=== PATIENT | female | born 1990 | race Caucasian/White ===

== ENCOUNTER 2018-07-21 00:20 | Emergency (ER) | payer MEDICAID ==
[~2018-07-21] VITALS: Ht 162.6 cm; Wt 55.9 kg
[2018-07-21 00:57] LABS: HCG SERUM POSITIVE (NEGATIVE)
[2018-07-21 01:11] LABS: APPEARANCE HAZY (CLEAR); BACTERIA NONE SEEN /hpf (NONE SEEN); BILIRUBIN NEGATIVE (NEGATIVE); COLOR RED (YELLOW); EPITHELIAL CELLS NSEEN /hpf (0-5); GLUCOSE NEGATIVE (NEGATIVE); KETONE NEGATIVE (NEGATIVE); NITRITE NEGATIVE (NEGATIVE); PROTEIN 2+ mg/dL (NEGATIVE); RED CELLS - URINE >50 /hpf (0-5); SPECIFIC GRAVITY 1.015 (1.005-1.020); UROBILINOGEN NORMAL (NORMAL); WHITE CELLS - URINE 0-5 /hpf (0-5)
[2018-07-21 01:21] LABS: ALBUMIN 3.3 g/dL (3.4-5.0); ALKALINE PHOSPHATASE 35 U/L (46-116); ALT (SGPT) 23 U/L (10-68); BILIRUBIN - TOTAL 0.19 mg/dL (0.2-1.3); CALC OSMOLALITY 275 mosm/kg (275-300); CALCIUM 8.3 mg/dL (8.5-10.1); CHLORIDE - SERUM 108 mmol/L (98-107); CREATININE - SERUM 0.7 mg/dL (0.6-1.3); GLUCOSE 97 mg/dL (74-106); PROTEIN - SERUM 6.2 g/dL (6.4-8.2); SODIUM 139 mmol/L (136-145); UREA NITROGEN 7 mg/dL (7-18); eGFR NON AFRICAN AMERICAN > 90 mL/min (90-120)
[2018-07-21 01:27] LABS: HCG - QUANTITATIVE (MATERNAL) 455 mIU/mL
[2018-07-21 02:49] VITALS: Ht 162.6 cm; Wt 55.9 kg
[2018-07-21 02:55] LABS: BASOPHILS 0.3 % (0-2); EOSINOPHILS 2.8 % (0-7); HEMOGLOBIN 9.9 g/dL (12-16); IMMATURE GRANULOCYTES 0.3 % (0-5); MCH 30.1 pg (26.0-34.0); MCHC 34.1 g/dL (31.0-37.0); MCV 88.1 fL (80.0-100.0); MEAN PLATELET VOLUME 10.6 fL (7.4-10.4); MONOCYTES 6.3 % (2-11); NEUTROPHILS 41.3 % (40-80); PLATELET COUNT 139 10x3/uL (130-400); RBC 3.29 10x6/uL (4.00-5.40); WBC 6.1 10x3/uL (4.8-10.8)
[2018-07-21 03:42] VITALS: BP 116/57
== END 2018-07-21 03:45 | disposition home or self-care (01) ==
LOC: D.ER 00:20
PROVIDERS: Family Medicine
DX: O03.9 Complete or unspecified spontaneous abortion without complication (principal); N93.9 Abnormal uterine and vaginal bleeding, unspecified; F17.200 Nicotine dependence, unspecified, uncomplicated

== ENCOUNTER → 2019-09-18 14:51 | Outpatient (CLI) | payer MEDICAID ==
[2018-07-21 02:49] VITALS: BMI 21.1
== END | disposition home or self-care (01) ==
LOC: D.LDO 14:51
PROVIDERS: ATTEND Student in an Organized Health Care Education/Training Program
DX: O16.9 Unspecified maternal hypertension, unspecified trimester (principal); Z3A.00 Weeks of gestation of pregnancy not specified

== ENCOUNTER → 2019-09-29 10:07 | Outpatient (CLI) | payer MEDICAID ==
[2018-07-21 02:49] VITALS: BMI 21.1
[2019-10-01 22:17] VITALS: BMI 27.5
== END | disposition home or self-care (01) ==
LOC: D.LDO 10:07
PROVIDERS: ATTEND Student in an Organized Health Care Education/Training Program
DX: O26.893 Other specified pregnancy related conditions, third trimester (principal); Z3A.38 38 weeks gestation of pregnancy; R10.84 Generalized abdominal pain

== ENCOUNTER 2019-10-01 21:52 | Inpatient (IN) | payer MEDICAID ==
[~2019-10-01] VITALS: Ht 162.6 cm; Wt 72.6 kg
[2019-10-01 22:17] VITALS: BP 138/68; Ht 162.6 cm; Wt 72.6 kg
[2019-10-02 01:51] LABS: HEMOGLOBIN 10.6 g/dL (12-16); MCH 31.3 pg (26.0-34.0); MCHC 33.1 g/dL (31.0-37.0); MCV 94.4 fL (80.0-100.0); MEAN PLATELET VOLUME 10.7 fL (7.4-10.4); RBC 3.39 10x6/uL (4.00-5.40); RDW 13.8 % (11.5-14.5); WBC 9.2 10x3/uL (4.8-10.8)
[2019-10-02 02:04] LABS: APPEARANCE CLEAR (CLEAR); BILIRUBIN NEGATIVE (NEGATIVE); COLOR YELLOW (YELLOW); GLUCOSE NEGATIVE (NEGATIVE); KETONE NEGATIVE (NEGATIVE); NITRITE NEGATIVE (NEGATIVE); PROTEIN TRACE mg/dL (NEGATIVE); UROBILINOGEN NORMAL (NORMAL)
[2019-10-02 02:05] LABS: BACTERIA FEW /hpf (NEGATIVE); CALCIUM OXALATE CRYSTALS 0-5 /hpf (NONE SEEN); EPITHELIAL CELLS 0-5 /hpf (0-5); MUCUS <1+ /lpf (NONE SEEN); RED CELLS - URINE 0-5 /hpf (0-5); WHITE CELLS - URINE 0-5 /hpf (NEGATIVE)
--- NOTE | 2019-10-02 19:00 | NUR ---
REPORT RECEIVED FROM PRINCESS NOVAK.
--- NOTE | 2019-10-02 19:00 | NUR ---
REPORT RECEIVED FROM ERIC NOVAK.
--- NOTE | 2019-10-02 19:45 | NUR ---
PATIENT SITTING UP IN BED. PATIENT STATES SHE AMBULATED TO BATHROOM AND VOIDED LARGE AMOUNT. DENIES ANY NEEDS AT THIS TIME. BED IN LOWEST POSITION, SIDE RAILS UP X 2, C/L AND WATER WITHIN REACH.
--- NOTE | 2019-10-02 20:12 | NUR ---
PATIENT SITTING UP IN BED. ASSESSMENT AND VITAL SIGNS DONE. RESPIRATIONS AT EASE. LUNG SOUNDS CLEAR IN ALL SEQUEIRA. HEART REGULAR RATE AND RHYTHM. ABDOMEN SOFT, NON TENDER. BOWEL SOUNDS PRESENT IN ALL QUADRANTS. FUNDUS FIRM, MIDLINE, 1 BELOW UMBILICUS. SMALL AMOUNT OF LOCHIA NOTED ON NICOLASA PAD. NO EDEMA NOTED TO EXTREMITIES. PATIENT DENIES ANY PAIN AT THIS TIME. BED IN LOWEST POSITION, SIDE RAILS UP X 2, C/L AND WATER WITHIN REACH.
[2019-10-02 20:14] VITALS: BP 120/65
--- NOTE | 2019-10-02 20:25 | NUR ---
PATIENT TRANSFERRED TO POST ROOM 1273. PATIENT AMBULATED IN HALLWAY TO ROOM WITH STEADY GAIT. BED IN LOWEST POSITION, SIDE RAILS UP X 2, C/L AND WATER WITHIN REACH.
--- NOTE | 2019-10-02 21:13 | NUR ---
PATIENT SITTING UP IN BED. AT BEDSIDE. PATIENT DENIES ANY PAIN. SCHEDULED TYLENOL 1000MG ADMINISTERED PO. PATIENT DENIES ANY NEEDS. BED IN LOWEST POSITION, SIDE RAILS UP X 2, C/L AND WATER WITHIN REACH.
--- NOTE | 2019-10-02 23:00 | NUR ---
PATIENT LYING IN BED WITH EYES CLOSED. RESPIRATIONS AT EASE. NO SIGNS OF DISTRESS NOTED. BED IN LOWEST POSITION, SIDE RAILS UP X 2, C/L AND WATER WITHIN REACH.
--- NOTE | 2019-10-03 01:00 | NUR ---
PATIENT SITTING UP IN BED HOLDING INFANT. DENIES ANY NEEDS AT THIS TIME. DENIES PAIN. BED IN LOWEST POSITION, SIDE RAILS UP X 2, C/L AND WATER WITHIN REACH.
--- NOTE | 2019-10-03 02:59 | NUR ---
PATIENT LYING QUIETLY IN BED WITH EYES CLOSED. EASILY AROUSED. DENIES PAIN. SCHEDULED TYLENOL 1000 MG ADMINISTERED PO. PATIENT DENIES FURTHER NEEDS. BED IN LOWEST POSITION, SIDE RAILS UP X 2, C/L AND WATER WITHIN REACH.
[2019-10-03 04:55] VITALS: BP 110/65
--- NOTE | 2019-10-03 04:56 | NUR ---
PATIENT LYING IN BED WITH EYES CLOSED. EASILY AROUSED. DENIES PAIN. VITAL SIGNS DONE. PATIENT DENIES ANY NEEDS AT THIS TIME. INFANT AT BEDSIDE LYING IN OPEN CRIB. BED IN LOWEST POSITION, SIDE RAILS UP X 2, C/L AND WATER WITHIN REACH.
--- NOTE | 2019-10-03 06:19 | NUR ---
PATIENT LYING QUIETLY IN BED WITH EYES CLOSED. RESPIRATIONS AT EASE. NO SIGNS OF DISTRESS NOTED. BED IN LOWEST POSITION, SIDE RAILS UP X2, C/L AND WATER WITHIN REACH.
[2019-10-03 07:10] LABS: BASOPHILS 0.3 % (0-2); EOSINOPHILS 1.4 % (0-7); HEMATOCRIT 29.3 % (36.0-48.0); HEMOGLOBIN 9.6 g/dL (12-16); IMMATURE GRANULOCYTES 0.3 % (0-5); MCH 30.9 pg (26.0-34.0); MCHC 32.8 g/dL (31.0-37.0); MCV 94.2 fL (80.0-100.0); MEAN PLATELET VOLUME 10.3 fL (7.4-10.4); MONOCYTES 6.3 % (2-11); NEUTROPHILS 69.7 % (40-80); PLATELET COUNT 256 10x3/uL (130-400); RBC 3.11 10x6/uL (4.00-5.40); RDW 13.8 % (11.5-14.5); WBC 9.6 10x3/uL (4.8-10.8)
[2019-10-03 08:11] LABS: RAPID PLASMA REAGIN Non Reactive (Non Reactive)
--- NOTE | 2019-10-03 08:43 | NUR ---
PT AND SIG OTHER AMB IN HALLS WITH IN CRIB, TAKEN TO NBN AND PT WALKS OFF UNIT WITH FAMILY MEMBERS.
--- NOTE | 2019-10-03 09:12 | NUR ---
PT BACK TO ROOM, RESP FROM HOSPITAL TO ROOM TO TALK WITH PT ABOUT INFANT COVERAGE.
[2019-10-03 09:45] VITALS: BP 122/73
--- NOTE | 2019-10-03 09:45 | NUR ---
AM ASSESSMENT COMPLETED. PT RATES HER PAIN AT 0/10, DENIES CLOTS WITH VOIDS. FUNDUS FIRM AT U/1. SALINE LOCK REMOVED FROM RIGHT FOREARM PER PT REQUEST, IV CATH NOTED TO BE INTACT. TOWELS PLACED IN BATHROOM FOR PT TO SHOWER WHEN SHE IS READY. DENIES OTHER NEEDS AT THIS TIME, IN CRIB AT BEDSIDE. SIDE RAILS UP X 2 WITH CALL LIGHT IN REACH.
--- NOTE | 2019-10-03 10:51 | NUR ---
LARGE ICE WATER PER REQUEST. NO OTHER NEEDS VOICED AT THIS TIME. IN CRIB AT BEDSIDE. SIDE RAILS UP X 2 WITH CALL LIGHT IN REACH.
--- NOTE | 2019-10-03 15:45 | NUR ---
DR DODSON MAKES HIS ROUNDS. AFTER TALKING WITH PT SHE WISHES TO REMAIN AN INPATIENT UNTIL IS DISCHARGED. UNDERSTANDS THAT SHE WILL BE TRANSFERRED TO [facility].
--- NOTE | 2019-10-03 16:50 | NUR ---
VERBAL REPORT TO Keith ASH RN WHO WILL BE TAKING OVER CARE.
--- NOTE | 2019-10-03 16:55 | NUR ---
PT TRANSFERRED VIA AMB, GAIT STEADY, TO [facility] ROOM 1221 WITH ALL BELONGINGS, INFANT BACK TO [facility] AT THIS TIME, PT ORIENTED TO ROOM, BED IN LOW POSITION, SIDE RAILS X 2, CALL LIGHT IN REACH, FAMILY AT BEDSIDE
--- NOTE | 2019-10-03 17:18 | NUR ---
INFANT TO ROOM VIA OPEN CRIB CART PER THIS RN, BANDS CHECKED, PT DENIES NEEDS OR PAIN AT THIS TIME
--- NOTE | 2019-10-03 18:42 | NUR ---
PT GETTING UP TO BR, REQUESTED AND SERVED ORANGE JUICE, DENIES FURTHER NEEDS OR PAIN, IN OPEN CRIB CART AND FAMILY MEMBER IN ROOM
--- NOTE | 2019-10-03 19:22 | NUR ---
BEDSIDE REPORT RECEIVED FROM OFF GOING DAY SHIFT NURSE SARAH ASH RN.
[2019-10-03 19:30] VITALS: BP 115/70
--- NOTE | 2019-10-03 19:30 | NUR ---
PT RESTING IN BED HOLDING . VSS. PT DENIES ANY COMPLAINTS OF PAIN. NO REQUEST MADE. INSTRUCTED PT TO NOTIFY NURSE WITH ANY PROBLEMS, NEEDS, OR CONCERNS. VERBALIZED UNDERSTANDING. BED IN LOW POSITION. SR UP X2. CALL LIGHT WITHON PTS REACH.
--- NOTE | 2019-10-03 20:05 | NUR ---
PT RESTING IN BED HOLDING . ASSESSMNET COMPLETE PER FLOWSHEET. PT DENIES ANY COMPLAINTS OF PAIN. BBS CLEAR. ABDOMEN SOFT. FUNDUS FIRM AND 2 BELOW UMBILICUS. SMALL AMOUNT OF LOCHIA NOTED ON PERIPAD. PT REPORTS THAT SHE IS PASSING GAS AND HAD A BM TODAY. PT DENIES ANY COMPLAINTS WITH VOIDING. NO EDEMA NOTED TO BLE. POC DISCUSSED. QUESTIONS ANSWERED. ORANGE JUICE PROVIDED. PT INSTRUCTED TO NOTIFY NURSE WITH ANY PROBLEMS, NEEDS, OR CONCERNS, VERBALIZED UNDERSTANDING. BED IN LOW POSITION. SR UP X2. CALL LIGHT WITHIN PTS REACH.
--- NOTE | 2019-10-03 21:00 | NUR ---
PT HAS NO C/O AT THIS TIME. BABY IN ROOM WELL SIGNIFICANT OTHER. PT ASKED TO CALL IF SHE HAD PAIN OR ANY CONCERNS.
--- NOTE | 2019-10-03 22:10 | NUR ---
RESTING QUIETLY. BABY IN ROOM SLEEPING. PT MOTHER IS ALSO STAYING THE NIGHT. NO C/O PAIN AND HAS NO NEEDS AT THIS TIME. SHE WAS ASKED TO CALL IF SHE NEEDED ANYTHING.
--- NOTE | 2019-10-03 23:15 | NUR ---
PT IS CHANGING HER BABY. BABY WIPES BROUGHT TO HER. PT HAS NO PAIN NOW AND HAS NO NEEDS. FOB IS IN THE ROOM. PT WAS INSTRUCTED TO CALL IF SHE NEEDS ANYTHING.
--- NOTE | 2019-10-04 00:10 | NUR ---
PT IS AWAKE WITH HER BABY IN ROOM. NO C/O PAIN. PT HAS NO NEEDS. PT MOTHER IS AT THE BEDSIDE.
--- NOTE | 2019-10-04 01:06 | NUR ---
MOTRIN 1000 MG GIVEN PO PER ORDER. NO C/O FROM PT. PT ASKED IF HER BABY COULD GO TO THE NURSERY FOR A BIT. BABY WAS TAKEN TO NURSERY BY [facility].
--- NOTE | 2019-10-04 04:10 | NUR ---
PT IS SLEEPING. BABY IS SLEEPING IN ROOM NO C/O
--- NOTE | 2019-10-04 06:35 | NUR ---
PT HAS BEEN UP WITH BABY FOR A LITTLE WHILE. SHE HAS NO C/O OF PAIN OR DISCOMFORT. BOTTLES AND NIPPLES TAKEN TO PT.
[2019-10-04 07:58] VITALS: BP 99/69
--- NOTE | 2019-10-04 08:06 | NUR ---
ASSESSMENT DONE. AWAKE AND ALERT. VERBAL RESPONSES APPRO TO QUESTIONS. UP AND ABOUT IN ROOM AT WILL. STATES HAS A LITTLE CRAMPING WHEN ASK- DENIES NEEDING MEDICATION. FUNDUS U1/FIRM. SMALL LOCHIA NOTED ON PAD. INFANT IN ROOM.
--- NOTE | 2019-10-04 08:46 | NUR ---
DR DODSON HERE TO SEE PT.
--- NOTE | 2019-10-04 09:16 | NUR ---
TDAP NOT RECOMMENDED FROM [facility]. PT STATES SHE GOT FLU SHOT AT MD OFFICE.
--- NOTE | 2019-10-04 10:26 | NUR ---
INFO FAXED TO [facility] [place] -QUIT SMOKING PER PT REQUEST.
[2019-10-04] MEDS ORDERED: TYLENOL W/CODEI1 TAB PO (11:49)
--- NOTE | 2019-10-04 12:02 | NUR ---
DISCHARGE INST VERBAL AND WRITTEN GIVEN. SCRIPT X 1 GIVEN -TYLENOL#3 ALONG WITH PT MED REC AND DRUG DATA INFO. PFW POST INST GIVEN. AWHOON INST GIVEN. ALSO SEE SIGNED INST SHEET. PT HEALTH SUMMARY GIVEN. PT DENIES QUESTIONS. IS NOT DISCHARGED YET. INSTRUCTED TO LET THIS NURSE KNOW WHEN INFANT IS DISCHARGED.
--- NOTE | 2019-10-04 14:00 | NUR ---
PT STATES SHE IS READY FOR DISCHARGE. DISCHARGED HOME WITH . TO AUTO VIA W/C.
== END 2019-10-04 14:00 | disposition home or self-care (01) | DRG 807 ==
LOC: D.LD 21:52 → D.WS 10-03 16:55
PROVIDERS: ADMIT Obstetrics & Gynecology; ATTEND Obstetrics & Gynecology
PROC: 10E0XZZ Delivery of Products of Conception, External Approach (ICD-10-PCS; principal; 2019-10-02)
PROC: 3E0P7VZ Introduction of Hormone into Female Reproductive, Via Natural or Artificial Opening (ICD-10-PCS; 2019-10-02)
PROC: 0HQ9XZZ Repair Perineum Skin, External Approach (ICD-10-PCS; 2019-10-02)
DX: O99.824 Streptococcus B carrier state complicating childbirth (principal); Z37.0 Single live birth; Z3A.38 38 weeks gestation of pregnancy; O70.0 First degree perineal laceration during delivery